=== PATIENT | male | born 1980 | race Caucasian/White ===

== ENCOUNTER 2017-07-12 18:04 | Emergency (ER) | payer OTHER ==
[~2017-07-12] VITALS: Ht 175.3 cm; Wt 145.2 kg
[2017-07-12 18:11] VITALS: BP 164/98
--- NOTE | 2017-07-12 19:18 | ED SKIN/ALLERGY COMPLAINT ---
History of Present Illness General Chief Complaint: Skin Rash/ Abcess Stated Complaint: RASH ALL OVER BODY Source: patient Exam Limitations: no limitations Vital Signs & Intake/Output Vital Signs & Intake/Output Vital Signs Date Time Temp Pulse Resp B/P B/P Pulse O2 O2 Flow FiO2 Mean Ox Delivery Rate 07/12 1811 98.0 98 18 164/98 98 Room Air ED Intake and Output 07/13 0000 07/12 1200 Intake Total 0 Output Total Balance 0 Intake, Oral 0 Patient 320 lb Weight Weight Estimated Measurement Method Allergies Coded Allergies: No Known Allergies (07/12/17) Reconcile Medications Amoxicillin 875 MG TABLET 1 TAB PO BID CELLULITIS Hydroxyzine Hydrochloride (Atarax) 50 MG TAB 1 TAB PO TID ITCHING Prednisone (Deltasone) 20 MG TABLET 1 TAB PO TID CONTACT DEMR Sulfamethoxazole/Trimethoprim (Bactrim Ds Tablet) 800 MG-160 MG TABLET 1 TAB PO BID CELLULITIS Triage Note: PT TO ER C/C RASH TO ARMS AND LEGS X 1 DAY. ADDITIONALLY, HAS SCABBING/RED RASH TO LEFT KNEE. STATES USES KNEE BRACE TO SAME AREA. STATES AREA WAS "OOZING FLUID" Triage Nurses Notes Reviewed? yes Onset: Abrupt Duration: day(s):, constant, continues in ED Timing: recent history Severity: mild, moderate No Modifying Factors: none HPI: 37-year-old male comes into the emergency room for further evaluation of rash. Patient comes in with rash on his upper arms and on his legs. Itching. He has had a rash behind his left knee that is now red and swollen and hard. He is experiencing a rash on his upper extremities. Denies any fever. Denies any vomiting. Denies any other associated symptoms. (Gaurang Pope) Past History Travel History Traveled to [place] past 21 day No Medical History Any Pertinent Medical History? none Surgical History Surgical History: none Psychosocial History What is your primary language Portuguese Tobacco Use: Quit <30 days ago Family History Hx Contributory? No (Gaurang Pope) Review of Systems Review of Systems Constitutional: Reports: no symptoms. EENTM: Reports: no symptoms. Respiratory: Reports: no symptoms. Cardiovascular: Reports: no symptoms. GI: Reports: no symptoms. Genitourinary: Reports: no symptoms. Musculoskeletal: Reports: no symptoms. Skin: Reports: see HPI. Neurological/Psychological: Reports: no symptoms. Hematologic/Endocrine: Reports: no symptoms. Immunologic/Allergic: Reports: no symptoms. All Other Systems: Reviewed and Negative (Gaurang Pope) Physical Exam Physical Exam General Appearance: well developed/nourished, mild distress Head: atraumatic Eyes: Bilateral: normal appearance. Ears, Nose, Throat: normal ENT inspection, hearing grossly normal Neck: normal inspection Respiratory: no respiratory distress Back: normal inspection Extremities: normal inspection, normal range of motion, no edema Neurologic/Psych: awake, alert, oriented x 3, normal mood/affect Skin: Generalized macular papular rash on upper extremities and lower extremities. Some induration and erythema and warmth specifically behind the left knee, Skin Problem Location: generalized (Gaurang Pope) Progress Differential Diagnosis: abscess/cellulitis, allergic reaction, anaphylaxis, contact dermatitis, erythema multiforme Plan of Care: 07/13/2017 12:00:46 AM I feel that the rash is likely a contact dermatitis. Patient treated with prednisone. Follow-up with primary care doctor. I feel the patient has a secondary cellulitis behind the left knee secondary to scratching. Patient started on some oral antibiotics. Have rechecked in 4 days. Return if any other concerns. (Gaurang Pope) Departure Departure Disposition: HOME OR SELF CARE Condition: Stable Clinical Impression Primary Impression: Cellulitis of left leg Secondary Impressions: Contact dermatitis Referrals: Patient Has No Primary Care Dr (PCP/Family) Additional Instructions: Take prednisone, hydroxyzine, amoxicillin, Bactrim as prescribed. Follow-up with PCP. Return in 4 days for wound check. Follow-up with your primary care physician this week. Contact them to let them know you were here in the emergency room. Return to the emergency room at any time sooner if you have worsening of your symptoms or any other concerns. Please note that there might be incidental findings in your evaluation that are unrelated to the current emergency department visit. Please notify your primary care doctor about this emergency department visit in order to obtain and review all of the testing performed so that these incidental findings can be monitored as needed. If you were prescribed a narcotic use caution as this medication is highly addictive and may make you feel lightheaded,dizzy or drowsy. These can make you constipated. Use for breakthrough pain only. No driving, drinking alcohol or operating [employer] when taking. If you had an x-ray performed, please understand that some fractures may not be seen on the initial set of x-rays. If your symptoms persist you might need a repeat set of x-rays to check for such a fracture. If you had a laceration evaluated, please understand that foreign bodies such as glass or wood may not be visible to the naked eye or on plain x-rays. If the wound becomes red, swollen, increasingly more painful or if there is any drainage from the wound, please have it reevaluated by a physician for the possibility of a retained foreign body. Departure Forms: Customer Survey General Discharge Information Prescriptions: Current Visit Scripts Sulfamethoxazole/Trimethoprim (Bactrim Ds Tablet) 1 TAB PO BID #20 TAB Amoxicillin 1 TAB PO BID #20 TAB Hydroxyzine Hydrochloride (Atarax) 1 TAB PO TID #30 TAB Prednisone (Deltasone) 1 TAB PO TID #15 TAB (Gaurang Pope) PA/TILE SORTER Co-Sign Statement Statement: ED Attending supervision documentation- I saw and evaluated the patient. I have also reviewed all the pertinent lab results and diagnostic results. I agree with the findings and the plan of care as documented in the PA's/TILE SORTER's documentation. x I have reviewed the ED Record and agree with the PA's/TILE SORTER's documentation. [] Additions or exceptions (if any) to the PAs/TILE SORTER's note and plan are summarized below: [] (Kp LAY,Eran)
[2017-07-12] MEDS ORDERED: BACTRIM DS TAB1 EACH PO (19:20)
[2017-07-12] MEDS ORDERED: HYDROXYZINE HCL50 M1 PO (19:20)
[2017-07-12] MEDS ORDERED: AMOXICILLIN875 M1 PO (19:20)
[2017-07-12] MEDS ORDERED: DELTASONE20 MG PO (19:20)
== END 2017-07-12 19:25 ==
LOC: ERH 18:04
DX: L03.116 Cellulitis of left lower limb (principal); L25.9 Unspecified contact dermatitis, unspecified cause